=== PATIENT | male | born 2000 | race African-American/Black ===

== ENCOUNTER 2021-09-14 23:58 | Emergency (ER) | payer OTHER ==
[~2021-09-14] VITALS: Ht 170.2 cm; Wt 78.6 kg
[2021-09-14 23:59] VITALS: BP 132/82
[2021-09-15] MEDS ORDERED: TETRACAINE 0.5% OPHTH SOLN 4ML OU ONE (01:55)
[2021-09-15] MEDS ORDERED: FLUORESCEIN OPHTH 1 MG STRIP OU ONE (01:55)
[2021-09-15] MEDS ORDERED: ERYTOIN8 OS (03:24)
[2021-09-15] MEDS ORDERED: ERYTHROMYCIN OPHTH OINT OS ONE (03:25)
== END 2021-09-15 04:18 | disposition home or self-care (01) ==
LOC: M ED 23:58
DX: S05.02XA Injury of conjunctiva and corneal abrasion without foreign body, left eye, initial encounter (principal); W20.8XXA Other cause of strike by thrown, projected or falling object, initial encounter; M25.562 Pain in left knee; Y92.84 Military training ground as the place of occurrence of the external cause; Y93.9 Activity, unspecified; Y99.1 Military activity